=== PATIENT | female | born 1980 | race Caucasian/White ===

== ENCOUNTER 2023-05-09 19:08 | Emergency (ER) | payer MEDICAID, OTHER ==
[~2023-05-09] VITALS: Ht 170.2 cm; Wt 66.0 kg
[2023-05-09 19:10] VITALS: BP 155/101
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
[2023-05-09 20:07] LABS: BASOPHILS % (AUTO) 0 % (0-10); EOSINOPHILS # (AUTO) 0.1 10^3/uL (0.0-0.3); EOSINOPHILS % (AUTO) 2 % (0-10); HEMATOCRIT 34 % (35-52); HEMOGLOBIN 10.4 g/dL (11.5-16.0); LYMPHOCYTES # (AUTO) 1.7 10^3/uL (1.0-4.0); LYMPHOCYTES % (AUTO) 24 % (12-44); MEAN CORPUSCULAR HEMOGLOBIN 26 pg (25-34); MEAN CORPUSCULAR HGB CONC 31 g/dL (32-36); MEAN CORPUSCULAR VOLUME 84 fL (80-99); MEAN PLATELET VOLUME 10.7 fL (9.0-12.2); MONOCYTES # (AUTO) 0.4 10^3/uL (0.0-1.0); MONOCYTES % (AUTO) 6 % (0-12); NEUTROPHILS # (AUTO) 4.6 10^3/uL (1.8-7.8); NEUTROPHILS % (AUTO) 67 % (42-75); PLATELET COUNT 273 10^3/uL (130-400); WHITE BLOOD COUNT 6.9 10^3/uL (4.3-11.0)
[2023-05-09 20:19] LABS: BUN/CREATININE RATIO 17; CALCIUM 8.8 MG/DL (8.5-10.1); CARBON DIOXIDE 21 MMOL/L (21-32); CHLORIDE 112 MMOL/L (98-107); CREATININE SERUM 0.89 MG/DL (0.60-1.30); GFR ESTIMATED 83; GLUCOSE 141 MG/DL (70-105); MAGNESIUM 2.2 MG/DL (1.6-2.4); POTASSIUM 3.6 MMOL/L (3.6-5.0); SODIUM 143 MMOL/L (135-145)
--- NOTE | 2023-05-09 20:27 | Diagnostic Imaging Report ---
EXAMINATION: Left wrist radiograph TECHNIQUE: AP, oblique, and lateral views of the left wrist obtained. HISTORY: wrist pain COMPARISON: Left wrist radiograph on 05/09/2023.. FINDINGS: Redemonstration of acute comminuted fracture of the distal left radius and minimally displaced fracture of the ulnar styloid. Redemonstration of intra-articular extension. Unexpected radiopaque foreign body. IMPRESSION: Redemonstration of acute comminuted fracture of the distal left radius and minimally minimally displaced fracture of the ulnar styloid. Dictated by: Dictated on workstation # [id number]
--- NOTE | 2023-05-09 20:28 | Diagnostic Imaging Report ---
EXAMINATION: AP, oblique, and lateral view of the left wrist obtained. TECHNIQUE: AP, oblique, lateral views of left wrist obtained. HISTORY: hand pain COMPARISON: None available. FINDINGS: Acute comminuted fracture of the distal left radius and minimally minimally displaced fracture of the ulnar styloid. IMPRESSION: Acute comminuted fracture of the distal left radius and minimally minimally displaced fracture of the ulnar styloid. Dictated by: Dictated on workstation # [id number]
--- NOTE | 2023-05-09 20:40 | Diagnostic Imaging Report ---
PROCEDURE: CT head without contrast. TECHNIQUE: Multiple contiguous axial images were obtained through the brain without the use of intravenous contrast. Auto Exposure Controls were utilized during the CT exam to meet ALARA standards for radiation dose reduction. INDICATION: Headache after fall 4 head laceration. Distracting injury of left wrist. COMPARISON: None. FINDINGS: The brain parenchyma is normal in attenuation. No intra- or extra-axial mass or fluid collection. No acute hemorrhage. The ventricles are normal in size, shape, and morphology. The blanco-white matter junction is normal. The subarachnoid cisterns are patent. The visualized paranasal sinuses are normal. The visualized portions of the orbits and globes are normal. The mastoid air cells are clear. Left frontal scalp laceration. No skull fracture. Impression: No acute intracranial hemorrhage. No large vascular territory horvath-white loss. No intracranial mass, midline shift, or hydrocephalus. Dictated by: Dictated on workstation # [id number]
[2023-05-09 20:46] LABS: AMPHETAMINE SCREEN, URINE NEGATIVE (NEGATIVE); BARBITURATE SCREEN URINE NEGATIVE (NEGATIVE); BENZODIAZEPINES SCREEN URINE NEGATIVE (NEGATIVE); CANNABINOID SCREEN, URINE NEGATIVE (NEGATIVE); COCAINE SCREEN URINE NEGATIVE (NEGATIVE); METHADONE STAT NEGATIVE (NEGATIVE); OPIATE SCREEN URINE NEGATIVE (NEGATIVE); OXYCODONE STAT NEGATIVE (NEGATIVE); PROPOXYPHENE STAT NEGATIVE (NEGATIVE); TRICYCLIC ANTIDEPRESSANTS SCRE NEGATIVE (NEGATIVE)
[2023-05-09] MEDS ORDERED: KETOROLAC INJ 30 MG/ML VIAL IVP ONE (21:30)
== END 2023-05-09 23:56 | disposition home or self-care (01) ==
LOC: ER 19:11
DX: S52.592A Other fractures of lower end of left radius, initial encounter for closed fracture (principal); S52.612A Displaced fracture of left ulna styloid process, initial encounter for closed fracture; S01.01XA Laceration without foreign body of scalp, initial encounter; S80.212A Abrasion, left knee, initial encounter; R55 Syncope and collapse; D64.9 Anemia, unspecified; R73.9 Hyperglycemia, unspecified; Z87.891 Personal history of nicotine dependence; Z88.6 Allergy status to analgesic agent; W01.0XXA Fall on same level from slipping, tripping and stumbling without subsequent striking against object, initial encounter; Y93.B2 Activity, push-ups, pull-ups, sit-ups
CPT/HCPCS: 12011; 29125; 70450; 73110; 73130; 80048; 80306; 83735; 84703; 85025; 99284; G0480; 36415; 80320

== ENCOUNTER 2023-05-11 15:00 | Outpatient (CLI) | payer MEDICAID ==
[~2023-05-11] VITALS: Ht 170.2 cm; Wt 67.8 kg
[2023-05-11] MEDS ORDERED: MULT-610 PO (16:14)
[2023-05-11] MEDS ORDERED: BUPR150T24 PO (16:14)
[2023-05-11] MEDS ORDERED: CA C1TAB79 PO (16:14)
[2023-05-11] MEDS ORDERED: VITA1CAP PO (16:14)
[2023-05-11] MEDS ORDERED: CLN.1T PO (16:14)
[2023-05-11] MEDS ORDERED: IBUP-1780 PO (16:14)
[2023-05-12] MEDS ORDERED: ACHD5005 PO (09:08)
[2023-05-12] MEDS ORDERED: ONDA4TAB11 SL (10:12)
== END 2023-05-11 16:19 | disposition home or self-care (01) ==
LOC: PREOP 15:00
PROVIDERS: ATTEND Orthopaedic Surgery
DX: Z01.818 Encounter for other preprocedural examination (principal)

== ENCOUNTER → 2023-05-11 | Outpatient (CLI) | payer MEDICAID ==
[~2023-05-11] MED LIST: ACHD5005 PO; BUPR150T24 PO; CA C1TAB79 PO; CLN.1T PO; IBUP-1780 PO; MULT-610 PO; ONDA4TAB11 SL; VITA1CAP PO
== END ==
LOC: ORTHO 12:53
PROVIDERS: ATTEND Orthopaedic Surgery
DX: S52.502A Unspecified fracture of the lower end of left radius, initial encounter for closed fracture (principal); X58.XXXA Exposure to other specified factors, initial encounter
CPT/HCPCS: 99203

== ENCOUNTER 2023-05-12 05:56 | Day surgery (SDC) | payer MEDICAID ==
[~2023-05-12] VITALS: Ht 170.2 cm; Wt 67.8 kg
[2023-05-12] VITALS (11 sets, daily range): BP systolic 139–159; BP diastolic 96–111
[~2023-05-12 05:56] MED LIST changes: -ACHD5005 PO; -ONDA4TAB11 SL
[2023-05-12] MEDS ORDERED: ceFAZolin INJECTION 2,000 MG ONE (06:39)
[2023-05-12] MEDS ORDERED: NS (IVPB) 50 ML 50 ML ONE (06:39)
[2023-05-12 06:43] LABS: AMPHETAMINE SCREEN, URINE NEGATIVE (NEGATIVE); BARBITURATE SCREEN URINE NEGATIVE (NEGATIVE); BENZODIAZEPINES SCREEN URINE NEGATIVE (NEGATIVE); CANNABINOID SCREEN, URINE NEGATIVE (NEGATIVE); COCAINE SCREEN URINE NEGATIVE (NEGATIVE); METHADONE STAT NEGATIVE (NEGATIVE); OPIATE SCREEN URINE NEGATIVE (NEGATIVE); OXYCODONE STAT NEGATIVE (NEGATIVE); PROPOXYPHENE STAT NEGATIVE (NEGATIVE); TRICYCLIC ANTIDEPRESSANTS SCRE NEGATIVE (NEGATIVE)
[2023-05-12] MEDS ORDERED: LACTATED RINGERS 1,000 ML 1,000 ML IV PRN (07:00)
[2023-05-12] MEDS ORDERED: ceFAZolin INJECTION 2,000 MG in NS (IVPB) 50 ML 50 ML IV ONE (07:00)
[2023-05-12] MEDS ORDERED: BUPIVACAINE 0.25% 30 ML VIAL ONE (07:05)
[2023-05-12] MEDS ORDERED: fentaNYL INJECTION 100 MCG/2 ML VIAL ONE (07:14)
[2023-05-12] MEDS ORDERED: MIDAZOLAM INJ 2 MG/2 ML VIAL ONE (07:14)
--- NOTE | 2023-05-12 07:15 | Progress Note-Pre Operative ---
Pre-Operative Progress Note Date of Available H&P: May 11, 2023 Date H&P Reviewed: May 12, 2023 Time H&P Reviewed: 07:05 History & Physical: H&P Reviewed, Patient Examed, No changes noted Pre-Operative Diagnosis: Left Intraarticular Distal Radius Fracture KUN SANCHEZ MD May 12, 2023 07:15
[2023-05-12] MEDS ORDERED: LIDOCAINE PF 2% 5 ML VIAL ONE (07:30)
[2023-05-12] MEDS ORDERED: ONDANSETRON INJECTION 4 MG/2 ML (SDV) ONE (07:30)
[2023-05-12] MEDS ORDERED: proPOfol INJECTION 200 MG/20 ML VIAL IV ONE (07:30)
[2023-05-12] MEDS ORDERED: KETOROLAC INJ 30 MG/ML VIAL ONE (08:42)
[2023-05-12] MEDS ORDERED: dexAMETHasone INJ 10 MG/ML 1 ML VIAL ONE (08:43)
[2023-05-12] MEDS ORDERED: SEVOFLURANE (ULTANE) 15 ML INHAL SOLN ONE (09:01)
--- NOTE | 2023-05-12 09:07 | Operative Report - Ortho ---
Operative Report Surgeon (s)/Harness Installer (s) Surgeon KUN SANCHEZ MD Harness Installer n/a Pre-Operative Diagnosis Left Intraarticular Distal Radius Fracture Post-Operative Diagnosis same Operative Report Date of Procedure: May 12, 2023 Name of Procedure Performed: Open Reduction and Internal Fixation of Left Intraarticular Distal Radius Fracture Description & Findings After obtaining informed consent, the patient was taken to the operating room. General anesthesia was induced. Surgical timeout was taken. The left upper extremity was prepped and draped in the usual sterile fashion. Incision was made over the volar side of the wrist. Radial artery was identified and protected. Fascia was divided, retractors were placed, and the pronator was reflected. Fracture site was exposed. Fracture site was mobilized. Reduction maneuver was performed using traction, wrist extension, and direct pressure. Intraarticular fragment was manipulated with a freer and reduced into a stable position. C-arm confirmed reduction. A [employer] distal radius plate was selected and positioned against the bone using C-arm. A nonlocking screw was placed in the slot of the plate. A nonlocking screw was then placed in the most distal row of the plate. Plate position and reduction were confirmed in the AP and lateral planes. An ulnar sided locking screw was placed in the distal row followed by the ulnar sided locking screw in the 2nd row. Additional locking screw was placed in the distal row. C-arm was once again utilized and noted to have good position of hardware with maintained reduction of fracture. 2 locking screws were then placed in the radial styloid position. 2 locking screws were placed in the diaphyseal portion of the plate. Images were obtained in the AP, and lateral and demonstrated adequate reduction of the fracture with maintained reduction of the intraarticular split and neutral volar tilt and appropriate position of the hardware. Final images were transferred to PACS. Wound was irrigated with normal saline. Subcutaneous layer was closed with 3-0 vicryl. Skin was closed with 4-0 nylon. Wound was injected locally with marcaine. Arm was dressed with xeroform, 4x4s, webril, volar splint, and VALDEMAR wrap. Patient tolerated the procedure well and was stable to the recovery room. Anesthesia Type General Estimated Blood Loss minimal Specimen(s) collected/removed None KUN SANCHEZ MD May 12, 2023 09:07
[2023-05-12] MEDS ORDERED: ACHD5005 PO (09:08)
--- NOTE | 2023-05-12 09:13 | Anesthesia-General Post-Op ---
General Patient Condition Mental Status/LOC: Same as Preop Cardiovascular: Satisfactory Nausea/Vomiting: Absent Respiratory: Satisfactory Pain: Controlled Complications: Absent Post Op Complications Complications None Follow Up Care/Instructions Patient Instructions None needed. Anesthesia/Patient Condition Patient Condition Patient is doing well, no complaints, stable vital signs, no apparent adverse anesthesia problems. No complications reported per nursing. NNEKA BROWN CRNA May 12, 2023 09:13
[2023-05-12] MEDS ORDERED: morphine INJ 10 MG/ML 1ML (SYR OR VIAL) IVP ONE (09:15)
[2023-05-12] MEDS ORDERED: ONDANSETRON INJECTION 4 MG/2 ML (SDV) IVP PRN (09:15)
[2023-05-12] MEDS ORDERED: HYDROmorphone INJECTION 2 MG/ML VIAL IV ONE (09:15)
[2023-05-12] MEDS ORDERED: ONDA4TAB11 SL (10:12)
--- NOTE | 2023-05-12 13:03 | Diagnostic Imaging Report ---
INDICATION: Wrist fracture, undergoing ORIF.. 2 intraprocedural images left wrist Ka,r: 0.63 mGy The hospital radiology department provided fluoroscopic imaging in support of an interventional procedure. No radiologist involvement and/or interpretation. Please reference the operating provider's procedure note. IMPRESSION: Intraprocedural technical imaging provided. Dictated by: Dictated on workstation # [id number]
== END 2023-05-12 11:05 ==
LOC: SDC 05:56
PROVIDERS: ATTEND Orthopaedic Surgery
DX: S52.542A Smith's fracture of left radius, initial encounter for closed fracture (principal); V29.608A Unspecified rider of other motorcycle injured in collision with unspecified motor vehicles in traffic accident, initial encounter; Y93.55 Activity, bike riding
CPT/HCPCS: 25608; 76000; 80306; 84703; 87081; C1713 ×8

== ENCOUNTER → 2023-05-25 | Outpatient (CLI) | payer MEDICAID ==
[~2023-05-25] MED LIST changes: +ACHD5005 PO; +ONDA4TAB11 SL
== END ==
LOC: ORTHO 09:18
PROVIDERS: ATTEND Orthopaedic Surgery
DX: Z47.89 Encounter for other orthopedic aftercare (principal)

== ENCOUNTER → 2023-06-08 | Outpatient (CLI) | payer MEDICAID ==
--- NOTE | 2023-06-08 15:19 | Diagnostic Imaging Report ---
INDICATION: Left wrist fracture AP and lateral views of the left wrist are obtained. Since 05/09/2023, there has been open reduction and internal fixation of comminuted distal radial fracture. Volar fixation plate and multiple screws are in place and the major fracture fragments are in anatomic alignment. IMPRESSION: No evidence of complication post open reduction and internal fixation of a distal radial fracture. Dictated by: Dictated on workstation # [id number]
== END ==
LOC: ORTHO 09:36
PROVIDERS: ATTEND Orthopaedic Surgery
DX: Z09 Encounter for follow-up examination after completed treatment for conditions other than malignant neoplasm (principal)
CPT/HCPCS: 73100

== ENCOUNTER → 2023-07-13 | Outpatient (CLI) | payer MEDICAID ==
--- NOTE | 2023-07-13 09:52 | Diagnostic Imaging Report ---
INDICATION: Left wrist fracture, postop. AP and lateral views of the left wrist are obtained and compared with 06/08/2023. FINDINGS: The patient has had previous ORIF of distal radial fracture. The hardware alignment is unchanged compared to the prior study. Remaining structures are intact. IMPRESSION: Stable hardware alignment post-ORIF of distal radial fracture. Dictated by: Dictated on workstation # [id number]
== END ==
LOC: ORTHO 08:04
PROVIDERS: ATTEND Orthopaedic Surgery
DX: Z09 Encounter for follow-up examination after completed treatment for conditions other than malignant neoplasm (principal)
CPT/HCPCS: 73100